=== PATIENT | male | born 1965 | race American Indian/Alaskan Native ===

== ENCOUNTER 2016-06-30 12:41 | Emergency (ER) | payer MEDICAID ==
[2016-06-30] MEDS ORDERED: TYLENOL #3 PO ONE (15:53)
[2016-06-30] MEDS ORDERED: FLEXERIL PO ONE (15:55)
--- NOTE | 2016-06-30 16:01 | Emergency Department Report ---
HPI - General Chief Complaint: Extremity Injury, Upper Time Seen by Provider: 06/30/16 15:32 - HPI HPI: 51-year-old male who presents to ED complaining of left bicep muscle pain 1 day. Patient states yesterday he tried to lift all pole table and felt a serum pain on his bicep. Patient describes pain as intermittent, throbbing/aching, localized to his left bicep region. The patient states he wrapped his bicep yesterday with Lanre wrap and got some relief. Patient states pain got worse this morning so decided to come in. Patient denies fevers chills/nausea/vomiting/chest pain/ shortness of breath/ loss of sensation/difficulty flexing and extending arm. ED Past Medical Hx - Past Medical History Hx Hypertension: Yes Hx Diabetes: Yes (II) Hx GERD: Yes Hx Arthritis: Yes Hx Asthma: Yes Additional medical history: High Cholesterol. Gout - Surgical History Hx Appendectomy: Yes Additional Surgical History: Tonsillectomy - Social History Smoking Status: Current Some Day Smoker Substance Use Type: Alcohol - Medications Home Medications: Home Medications Medication Instructions Recorded Confirmed Last Taken Type Allopurinol [Zyloprim] 100 mg PO QDAY 05/10/14 05/10/14 05/08/14 History Colchicine 0.6 mg PO DAILY 05/10/14 05/10/14 05/08/14 History Metoprolol [Lopressor TAB] 100 mg PO DAILY 05/10/14 05/10/14 05/09/14 History Pravastatin (Nf) [Pravachol] 40 mg PO QHS 05/10/14 05/10/14 05/08/14 History Ranitidine (Nf) [Zantac (Nf)] 150 mg PO QDAY 05/10/14 05/10/14 05/08/14 History HYDROcodone/ACETAMINOPHEN [[place] 1 each PO Q6HR PRN #20 tablet 05/20/14 Unknown Rx 7.5-325 mg TAB] Cyclobenzaprine [Flexeril] 10 mg PO QHS #24 tablet 06/30/16 Unknown Rx Ibuprofen [Motrin] 800 mg PO Q8HR PRN #40 tablet 06/30/16 Unknown Rx ED Review of Systems ROS: Stated complaint: LEFT ARM PULL MUSCLE/POSS TEAR Other details as noted in HPI Constitutional: denies: chills, fever Eyes: denies: eye pain, eye discharge, vision change ENT: denies: ear pain, throat pain Respiratory: denies: cough, shortness of breath, wheezing Cardiovascular: denies: chest pain, palpitations Endocrine: no symptoms reported Gastrointestinal: denies: abdominal pain, nausea, diarrhea Genitourinary: denies: urgency, dysuria Musculoskeletal: denies: back pain, joint swelling, arthralgia Skin: denies: rash, lesions Neurological: denies: headache, weakness, paresthesias, confusion, abnormal gait , vertigo Psychiatric: denies: anxiety, depression Hematological/Lymphatic: denies: easy bleeding, easy bruising Physical Exam - Physical Exam Vital Signs: Vital Signs 06/30/16 12:51 Temperature 98.1 F Pulse Rate 79 Respiratory 20 Rate Blood Pressure 150/97 O2 Sat by Pulse 96 Oximetry Physical Exam: GENERAL: Alert and oriented x3, no apparent distress, Normal Gait, atraumatic. HEAD: Head is normocephalic and a-traumatic. EYES: Extra ocular muscles are intact. Pupils are equal, round, and reactive to light and accommodation. EARS: symetrical, atraumatic, y. NOSE: Nose symetrical, Nontender,Nares appeared normal. MOUTH:Mouth is well hydrated and without lesions. NECK: Supple. Non edematous, No carotid bruits. No lymphadenopathy or thyromegaly. LUNGS: Symetrical with respiration, No wheezing, no rales or crackles, CTAB. HEART: S1, S2 present, regular rate and rhythm without murmur, no rubs, no gallops. ABDOMEN: No organomegaly was noted,Positive bowel sounds, soft, and non- distended. . Nontender to palpation on all Quadrants, NO CVA tenderness. EXTREMITIES/MUSCULOSKELETAL: No cyanosis, clubbing, rash, lesions or edema. Full ROM bilaterally. UE/LE Pulses 2+ bilaterally. LE and UE 5+ strength bilaterally. Tenderness to palpation of the biceps muscle. NEUROLOGIC: No focal Deficit, Cranial nerves II through XII are grossly intact. No loss of sensation, SKIN: Warm and dry, No lesions, No ulceration or induration present. ED Course Vital Signs 06/30/16 12:51 Temperature 98.1 F Pulse Rate 79 Respiratory 20 Rate Blood Pressure 150/97 O2 Sat by Pulse 96 Oximetry ED Medical Decision Making - Medical Decision Making 51-year-old female male presents with myalgia. Vital signs stable. Patient is in no acute distress. ED course: Patient received 1 Tylenol 3 and 5 mg of Flexeril. Patient reports saline better. Discussed patient's the patient to follow up with primary care physician as referred. Discussed heat therapy to the biceps muscle 3 times a day. Discussed drowsiness effects of home medication of Flexeril. Patient understands and states will comply to follow-up. Critical care attestation.: If time is entered above; I have spent that time in minutes in the direct care of this critically ill patient, excluding procedure time. ED Disposition Clinical Impression: Myalgia Muscle strain of left upper arm Qualifiers: Encounter type: initial encounter Qualified Code(s): S46.912A - Strain of unspecified muscle, fascia and tendon at shoulder and upper arm level, left arm , initial encounter Disposition: DISCHARGED TO HOME OR SELFCARE Is pt being admited?: No Does the pt Need Aspirin: No Condition: Stable Instructions: Muscle Strain (ED), Heat Pack Application (ED) Prescriptions: Cyclobenzaprine [Flexeril] 10 mg PO QHS #24 tablet Ibuprofen [Motrin] 800 mg PO Q8HR PRN #40 tablet PRN Reason: Pain Referrals: RUPERTO EMMANUEL MD [Primary Care Provider] - 3-5 Days [facility] [Outside] - 3-5 Days [facility] [Outside] - 3-5 Days [facility] [Outside] - 3-5 Days Forms: Work/School Release Form(ED), Accompanied Note Time of Disposition: 16:08
[2016-06-30] MEDS ORDERED: CATAPRES PO ONE (16:16)
[2016-06-30 17:03] VITALS: BP 146/93
== END 2016-06-30 17:08 | disposition home or self-care (01) ==
LOC: ED 12:41
DX: S46.912A Strain of unspecified muscle, fascia and tendon at shoulder and upper arm level, left arm, initial encounter (principal); M79.1 Myalgia; I10 Essential (primary) hypertension; E11.9 Type 2 diabetes mellitus without complications; K21.9 Gastro-esophageal reflux disease without esophagitis; M19.90 Unspecified osteoarthritis, unspecified site; J45.909 Unspecified asthma, uncomplicated; E78.00 Pure hypercholesterolemia, unspecified; M10.9 Gout, unspecified; F17.200 Nicotine dependence, unspecified, uncomplicated; X58.XXXA Exposure to other specified factors, initial encounter; Y93.9 Activity, unspecified; Y92.89 Other specified places as the place of occurrence of the external cause; Y99.9 Unspecified external cause status
CPT/HCPCS: 99283

== ENCOUNTER 2018-07-31 06:41 | Emergency (ER) | payer MEDICAID ==
[2018-07-31] MEDS ORDERED: ROBITUSSIN PO ONE (07:41)
[2018-07-31] MEDS ORDERED: SOLU-Medrol IM ONE (07:41)
--- NOTE | 2018-07-31 07:43 | Emergency Department Report ---
Minor Respiratory - HPI Chief Complaint: Upper Respiratory Infection Stated Complaint: FLU LIKE SYMPTOMS,FEVER Time Seen by Provider: 07/31/18 07:23 Duration: 3 Days Severity: moderate Minor Respiratory: Yes Able to Tolerate Fluids, Yes Cough, No Rhinorrhea, No Sore Throat, No Ear Pain, No Sick Contacts, No Hemoptysis, No Chest Pain, No Shortness of Breath, No Fever Other History: 53-year-old healthy looking female presents to the ED complaining of cough congestion and fever that started Tuesday. Patient states he had a fever Tuesday night. Patient states cough and started yesterday. Patient states that he has a history of asthma and has inhalers at home which he uses. Patient states she's been coughing up greenish mucus. He denies chest pain, shortness of breath, dizziness, headache or blurred vision. ED Review of Systems ROS: Stated complaint: FLU LIKE SYMPTOMS,FEVER Other details as noted in HPI Comment: All other systems reviewed and negative ED Past Medical Hx - Past Medical History Hx Hypertension: Yes Hx Diabetes: Yes (II) Hx GERD: Yes Hx Arthritis: Yes Hx Asthma: Yes Additional medical history: High Cholesterol. Gout - Surgical History Hx Appendectomy: Yes Additional Surgical History: Tonsillectomy - Social History Smoking Status: Never Smoker Substance Use Type: None - Medications Home Medications: Home Medications Medication Instructions Recorded Confirmed Last Taken Type Allopurinol [Zyloprim] 100 mg PO QDAY 05/10/14 05/10/14 05/08/14 History Colchicine 0.6 mg PO DAILY 05/10/14 05/10/14 05/08/14 History Metoprolol [Lopressor TAB] 100 mg PO DAILY 05/10/14 05/10/14 05/09/14 History Pravastatin [Pravachol] 40 mg PO QHS 05/10/14 05/10/14 05/08/14 History Ranitidine (Nf) [Zantac (Nf)] 150 mg PO QDAY 05/10/14 05/10/14 05/08/14 History HYDROcodone/ACETAMINOPHEN [[place] 1 each PO Q6HR PRN #20 tablet 05/20/14 Unknown Rx 7.5-325 mg TAB] Cyclobenzaprine [Flexeril] 10 mg PO QHS #24 tablet 06/30/16 Unknown Rx Azithromycin [Zithromax] 250 mg PO DAILY #1 pack 07/31/18 Unknown Rx Benzonatate [Tessalon Perles] 100 mg PO Q8HR #20 capsule 07/31/18 Unknown Rx Ibuprofen [Motrin 800 MG tab] 800 mg PO Q8HR PRN #40 tablet 07/31/18 Unknown Rx Minor Respiratory Exam - Exam General: Vital signs noted. No distress. Alert and acting appropriately. HEENT: Yes Moist Mucous Membranes, No Pharyngeal Erythema, No Pharyngeal Exudates, No Rhinorrhea, No Conjuctival Injection, No Frontal Tenderness, No Maxillary Tenderness Ear: Neither TM Bulge, Neither TM Erythema, Neither EAC Pain, Neither EAC Discharge Neck: Yes Supple, No Adenopathy Lungs: Yes Good Air Exchange, No Wheezes, No [place], No Stridor, No Cough, No Labored Respirations, No Retractions, No Use of Accessory Muscles, No Other Abnormal Lung Sounds Heart: Yes Regular, No Murmur Abdomen: Yes Normal Bowel Sounds, No Tenderness, No Peritoneal Signs Skin: No Rash, No Edema Neurologic: Alert and oriented, no deficits. Musculoskeletal: Unremarkable. ED Course Vital Signs 07/31/18 06:58 Temperature 98.9 F Pulse Rate 98 H Respiratory 20 Rate Blood Pressure 158/87 O2 Sat by Pulse 96 Oximetry ED Medical Decision Making - Radiology Data Radiology results: report reviewed, image reviewed FINAL REPORT PROCEDURE: XR CHEST ROUTINE 2V TECHNIQUE: PA and lateral chest radiographs were obtained. CPT 57250 HISTORY: fever and cough COMPARISON: No prior studies are available for comparison. FINDINGS: Heart: Normal. Mediastinum/Vessels: Normal. Lungs/Pleural space: Normal. Bony thorax: No acute osseous abnormality. Other: IMPRESSION: Normal examination. Transcribed By: CO Dictated By: KAUSHAL WALKER MD Electronically Authenticated By: KAUSHAL WALKER MD Signed Date/Time: 07/31/18 0756 - Medical Decision Making 53-year-old male presents with bronchitis Due to patient's as history of asthma was given Solu Medrol and Robitussin ED. Patient was sent him on prophylaxis Z-Mahamed and cough suppressant. Discussed follow-up with her primary care physician. Critical care attestation.: If time is entered above; I have spent that time in minutes in the direct care of this critically ill patient, excluding procedure time. ED Disposition Clinical Impression: URI (upper respiratory infection), Bronchitis Disposition: DC- TO HOME OR SELFCARE Is pt being admited?: No Does the pt Need Aspirin: No Condition: Stable Instructions: Chronic Bronchitis (ED) Additional Instructions: Make sure to follow up with the primary care physician as discussed. Take all your medications as you've been prescribed. If you have any worsening symptoms or develop new symptoms please return to ED immediately. Prescriptions: Azithromycin [Zithromax] 250 mg PO DAILY #1 pack Benzonatate [Tessalon Perles] 100 mg PO Q8HR #20 capsule Ibuprofen [Motrin 800 MG tab] 800 mg PO Q8HR PRN #40 tablet PRN Reason: Pain Referrals: PRIMARY MD WILLIAM [Primary Care Provider] - 3-5 Days TAIWO HAYWOOD MD [Referring] - 3-5 Days [facility] [Outside] - 3-5 Days Forms: Work/School Release Form(ED) Time of Disposition: 08:41
--- NOTE | 2018-07-31 07:56 | XRay Report ---
FINAL REPORT PROCEDURE: XR CHEST ROUTINE 2V TECHNIQUE: PA and lateral chest radiographs were obtained. CPT 81495 HISTORY: fever and cough COMPARISON: No prior studies are available for comparison. FINDINGS: Heart: Normal. Mediastinum/Vessels: Normal. Lungs/Pleural space: Normal. Bony thorax: No acute osseous abnormality. Other: IMPRESSION: Normal examination.
[2018-07-31 08:52] VITALS: BP 148/97
== END 2018-07-31 08:48 | disposition home or self-care (01) ==
LOC: ED 06:41
DX: J06.9 Acute upper respiratory infection, unspecified (principal); J40 Bronchitis, not specified as acute or chronic; I10 Essential (primary) hypertension; E11.9 Type 2 diabetes mellitus without complications; M19.90 Unspecified osteoarthritis, unspecified site; J45.909 Unspecified asthma, uncomplicated; E78.00 Pure hypercholesterolemia, unspecified; M10.9 Gout, unspecified; Z90.89 Acquired absence of other organs; Z90.49 Acquired absence of other specified parts of digestive tract; Z88.6 Allergy status to analgesic agent
CPT/HCPCS: 71046; 96372; 99283; J2920

== ENCOUNTER 2018-12-08 04:51 | Emergency (ER) | payer MEDICAID ==
[2018-12-08] MEDS ORDERED: MORPHINE IV ONE (05:10)
[2018-12-08] MEDS ORDERED: ZOFRAN IV ONE (05:10)
[2018-12-08 05:24] LABS: Basophils # (Auto) 0.1 K/mm3 (0.0-0.1); Basophils % (Auto) 0.5 % (0.0-1.8); Eosinophils % (Auto) 0.3 % (0.0-4.3); Hematocrit 38.2 % (35.5-45.6); Hemoglobin 12.6 gm/dl (11.8-15.2); Lymphocytes % (Auto) 18.6 % (13.4-35.0); Mean Corpuscular HGB Conc 33 % (32-34); Mean Corpuscular Volume 88 fl (84-94); Monocytes # (Auto) 1.1 K/mm3 (0.0-0.8); Monocytes % (Auto) 6.6 % (0.0-7.3); Platelet Count 179 K/mm3 (140-440); Red Blood Count 4.35 M/mm3 (3.65-5.03); Red Cell Distribution Width 14.7 % (13.2-15.2)
[2018-12-08 05:52] LABS: Alanine Aminotransferase 45 units/L (7-56); Albumin 4.3 g/dL (3.9-5); BUN/Creatinine Ratio 11; Bilirubin,Direct < 0.2 mg/dL (0-0.2); Blood Urea Nitrogen 11 mg/dL (9-20); Hemolysis Index 10
--- NOTE | 2018-12-08 06:04 | Cat Scan Report ---
CT abdomen pelvis wo con INDICATION / CLINICAL INFORMATION: Abdominal Pain. Right flank pain extending into right scrotum with history of kidney stones. TECHNIQUE: Axial CT imaging of abdomen and pelvis was performed without IV or oral contrast. Coronal and sagitta l reformatted imaging obtained and reviewed. All CT scans at this location are performed using CT dos e reduction for ALARA by means of automated exposure control. COMPARISON: None available. FINDINGS: CT abdomen without contrast demonstrates mild hepatomegaly. I suspect there is some degree of hepatic steatosis. Spleen, pancreas, and gallbladder appear grossly unremarkable. Both adrenal glands are sl ightly thickened suggesting adrenal gland hyperplasia. There is a nonobstructing 4 mm calculus in the lower pole the left kidney. There are no intrarenal calculi present within the right kidney. No hydr onephrosis. CT pelvis without contrast does not demonstrate any pelvic mass, free fluid, or focal inflammatory ch kevin. The appendix appears to have been surgically removed. No calculi are seen within the bladder. F oley catheter balloon is present within the urinary bladder. GI tract is grossly unremarkable. The prostate gland is minimally enlarged. Inflammatory changes are seen in the periprosthetic fat whi ch could indicate the presence of prostatitis. Visualized lung bases are clear. No significant osseous abnormality noted. IMPRESSION: 1. Mild inflammatory changes are seen surrounding the prostate gland suggesting the presence of prost atitis. Please correlate clinically. 2. Small nonobstructing calculus within the left kidney. No right renal calculi or hydronephrosis. 3. Mild hepatomegaly most likely secondary to hepatic steatosis. Signer Name: Eve Delaney MD Signed: 12/08/2018 5:59 AM Workstation Name: [id number]
[2018-12-08] MEDS ORDERED: LEVAQUIN PO ONE (06:23)
[2018-12-08] MEDS ORDERED: NACL 0.9% 500 ML 500 ML IV ONE (06:23)
--- NOTE | 2018-12-08 06:23 | Emergency Department Report ---
ED General Adult HPI - General Chief complaint: Abdominal Pain Stated complaint: FLANK PAIN Time Seen by Provider: 12/08/18 06:12 Source: patient, RN notes reviewed Mode of arrival: Ambulatory Limitations: No Limitations - History of Present Illness Initial comments: This is a pleasant 53-year-old gentleman. The patient is not known to this provider previously. His primary care doctor is Dr. Fabrice Lane. He does not recall the name of his urologist, but indicates that his urologist is at [facility]. His past medical history includes appendectomy reported 5 years ago, gout, hypertension, diabetes and high cholesterol. Patient presents to the emergency room today with a complaint of nontraumatic suprapubic pain, flank pain, nausea and vomiting 2, chills, inability to urinate, dyschezia, rectal pain. Symptoms present for the past 2 days. They're intermittent. They do not radiate anywhere, except as noted, and do not have exacerbating or relieving factors. Patient denies headache, neck pain, chest pain, upper abdominal pain, exertional shortness of breath, he is not nauseous at this time, he does endorse fevers and chills, he denies new or different leg pain, leg swelling, and he denies skin rashes. In the emergency room, symptoms were improved with placement of a Horton catheter, pain medication, and nausea medication. -: Gradual Location: back, pelvis Radiation: back Severity scale (0 -10): 8 Quality: other Consistency: other Improves with: other Worsens with: other - Related Data Home Medications Medication Instructions Recorded Confirmed Last Taken Allopurinol [Zyloprim] 100 mg PO QDAY 05/10/14 05/10/14 05/08/14 Colchicine 0.6 mg PO DAILY 05/10/14 05/10/14 05/08/14 Metoprolol [Lopressor TAB] 100 mg PO DAILY 05/10/14 05/10/14 05/09/14 Pravastatin [Pravachol] 40 mg PO QHS 05/10/14 05/10/14 05/08/14 Ranitidine (Nf) [Zantac (Nf)] 150 mg PO QDAY 05/10/14 05/10/14 05/08/14 Previous Rx's Medication Instructions Recorded Last Taken Type HYDROcodone/ACETAMINOPHEN [[place] 1 each PO Q6HR PRN #20 tablet 05/20/14 Unknown Rx 7.5-325 mg TAB] Cyclobenzaprine [Flexeril] 10 mg PO QHS #24 tablet 06/30/16 Unknown Rx Azithromycin [Zithromax] 250 mg PO DAILY #1 pack 07/31/18 Unknown Rx Benzonatate [Tessalon Perles] 100 mg PO Q8HR #20 capsule 07/31/18 Unknown Rx Ibuprofen [Motrin 800 MG tab] 800 mg PO Q8HR PRN #40 tablet 07/31/18 Unknown Rx Acetaminophen [Non-Aspirin Extra 500 mg PO Q6HR PRN #30 tablet 12/08/18 Unknown Rx Strength] Metoclopramide [Reglan] 10 mg PO QID PRN #30 tablet 12/08/18 Unknown Rx levoFLOXacin [Levaquin TAB] 500 mg PO QDAY #42 tablet 12/08/18 Unknown Rx Allergies Allergy/AdvReac Type Severity Reaction Status Date / Time latex Allergy Rash Verified 06/30/16 12:50 aspirin AdvReac Swelling Verified 09/13/13 11:41 ED Review of Systems ROS: Stated complaint: FLANK PAIN Other details as noted in HPI Constitutional: chills, fever Eyes: denies: eye discharge ENT: denies: epistaxis Respiratory: denies: cough Cardiovascular: denies: chest pain Gastrointestinal: nausea, vomiting Genitourinary: denies: dysuria, discharge, testicular pain Musculoskeletal: back pain Skin: denies: lesions Neurological: weakness Hematological/Lymphatic: denies: easy bleeding ED Past Medical Hx - Past Medical History Previous Medical History?: Yes Hx Hypertension: Yes Hx Diabetes: Yes (II) Hx GERD: Yes Hx Arthritis: Yes Hx Asthma: Yes Additional medical history: High Cholesterol ,BPH. Gout - Surgical History Past Surgical History?: Yes Hx Appendectomy: Yes Additional Surgical History: Tonsillectomy - Social History Smoking Status: Current Every Day Smoker Substance Use Type: Alcohol - Medications Home Medications: Home Medications Medication Instructions Recorded Confirmed Last Taken Type Allopurinol [Zyloprim] 100 mg PO QDAY 05/10/14 05/10/14 05/08/14 History Colchicine 0.6 mg PO DAILY 05/10/14 05/10/14 05/08/14 History Metoprolol [Lopressor TAB] 100 mg PO DAILY 05/10/14 05/10/14 05/09/14 History Pravastatin [Pravachol] 40 mg PO QHS 05/10/14 05/10/14 05/08/14 History Ranitidine (Nf) [Zantac (Nf)] 150 mg PO QDAY 05/10/14 05/10/14 05/08/14 History HYDROcodone/ACETAMINOPHEN [[place] 1 each PO Q6HR PRN #20 tablet 05/20/14 Unknown Rx 7.5-325 mg TAB] Cyclobenzaprine [Flexeril] 10 mg PO QHS #24 tablet 06/30/16 Unknown Rx Azithromycin [Zithromax] 250 mg PO DAILY #1 pack 07/31/18 Unknown Rx Benzonatate [Tessalon Perles] 100 mg PO Q8HR #20 capsule 07/31/18 Unknown Rx Ibuprofen [Motrin 800 MG tab] 800 mg PO Q8HR PRN #40 tablet 07/31/18 Unknown Rx Acetaminophen [Non-Aspirin Extra 500 mg PO Q6HR PRN #30 tablet 12/08/18 Unknown Rx Strength] Metoclopramide [Reglan] 10 mg PO QID PRN #30 tablet 12/08/18 Unknown Rx levoFLOXacin [Levaquin TAB] 500 mg PO QDAY #42 tablet 12/08/18 Unknown Rx ED Physical Exam - General Limitations: No Limitations General appearance: alert, in no apparent distress, obese - Head Head exam: Present: atraumatic, normocephalic - Eye Eye exam: Present: normal appearance, EOMI - ENT ENT exam: Present: normal exam, normal orophraynx, mucous membranes moist, normal external ear exam - Neck Neck exam: Present: normal inspection, full ROM. Absent: tenderness, meningismus - Respiratory Respiratory exam: Present: normal lung sounds bilaterally. Absent: respiratory distress - Cardiovascular Cardiovascular Exam: Present: regular rate, normal rhythm, tachycardia, normal heart sounds. Absent: bradycardia, irregular rhythm, systolic murmur, diastolic murmur, rubs, gallop - GI/Abdominal GI/Abdominal exam: Present: soft. Absent: distended, tenderness, guarding, rebound, pulsatile mass - Rectal Rectal exam: Present: deferred - exam: Present: normal inspection, other (chaperoned by nurse Jovanny Ga). Absent: testicular tenderness External exam: Present: normal external exam, other (there is a Horton catheter in place draining clear yellow urine) - Extremities Exam Extremities exam: Present: normal inspection, full ROM, other (2+ pulses noted in the bilateral upper, lower extremities. Compartments soft. No long bony ten derness. The pelvis is stable.). Absent: pedal edema, joint swelling, calf tenderness - Back Exam Back exam: Present: normal inspection, full ROM. Absent: tenderness, CVA tenderness (R), CVA tenderness (L), paraspinal tenderness, vertebral tenderness - Neurological Exam Neurological exam: Present: alert, oriented X3, normal gait, other (Extraocular movements intact. Tongue midline. No facial droop. Facial sensation intact to light touch in the V1, V2, V3 distribution bilaterally. 5 and 5 strength in 4 extremities.. Sensation is intact to light touch in 4 extremities.). Absent: motor sensory deficit - Psychiatric Psychiatric exam: Present: normal affect, normal mood - Skin Skin exam: Present: warm, dry, intact, normal color. Absent: rash ED Course Vital Signs 12/08/18 12/08/18 12/08/18 04:55 05:10 05:16 Temperature 98.4 F 100.5 F H Pulse Rate 106 H 119 H 99 H Respiratory 22 14 25 H Rate Blood Pressure 142/82 166/99 Blood Pressure 166/99 [Right] O2 Sat by Pulse 96 99 99 Oximetry 12/08/18 12/08/18 12/08/18 05:24 05:58 06:00 Temperature Pulse Rate 101 H 98 H Respiratory 20 17 Rate Blood Pressure 154/93 151/90 Blood Pressure [Right] O2 Sat by Pulse 98 97 Oximetry 12/08/18 12/08/18 12/08/18 07:15 08:00 09:54 Temperature Pulse Rate 68 74 84 Respiratory 17 17 17 Rate Blood Pressure Blood Pressure 113/59 132/68 129/58 [Right] O2 Sat by Pulse 100 100 100 Oximetry ED Medical Decision Making - Lab Data Result diagrams: 12/08/18 05:15 12/08/18 05:15 Vital Signs 12/08/18 12/08/18 12/08/18 04:55 05:10 05:16 Temperature 98.4 F 100.5 F H Pulse Rate 106 H 119 H 99 H Respiratory 22 14 25 H Rate Blood Pressure 142/82 166/99 Blood Pressure 166/99 [Right] O2 Sat by Pulse 96 99 99 Oximetry 0712/08/18 12/08/18 05:24 05:58 06:00 Temperature Pulse Rate 101 H 98 H Respiratory 20 17 Rate Blood Pressure 154/93 151/90 Blood Pressure [Right] O2 Sat by Pulse 98 97 Oximetry Lab Results 12/08/18 12/08/18 Range/Units 05:15 05:15 WBC 15.9 H (4.5-11.0) K/mm3 RBC 4.35 (3.65-5.03) M/mm3 Hgb 12.6 (11.8-15.2) gm/dl Hct 38.2 (35.5-45.6) % MCV 88 (84-94) fl MCH 29 (28-32) pg MCHC 33 (32-34) % RDW 14.7 (13.2-15.2) % Plt Count 179 (140-440) K/mm3 Lymph % (Auto) 18.6 (13.4-35.0) % [place] % (Auto) 6.6 (0.0-7.3) % Eos % (Auto) 0.3 (0.0-4.3) % Baso % (Auto) 0.5 (0.0-1.8) % Lymph # 3.0 (1.2-5.4) K/mm3 [place] # 1.1 H (0.0-0.8) K/mm3 Eos # 0.0 (0.0-0.4) K/mm3 Baso # 0.1 (0.0-0.1) K/mm3 Seg Neutrophils % 74.0 H (40.0-70.0) % Seg Neutrophils # 11.8 H (1.8-7.7) K/mm3 Sodium 134 L (137-145) mmol/L Potassium 4.0 (3.6-5.0) mmol/L Chloride 99.8 (98-107) mmol/L Carbon Dioxide 22 (22-30) mmol/L Anion Gap 16 mmol/L BUN 11 (9-20) mg/dL Creatinine 1.0 (0.8-1.5) mg/dL Estimated GFR > 60 ml/min BUN/Creatinine Ratio 11 % Glucose 203 H (75-100) mg/dL Calcium 10.0 (8.4-10.2) mg/dL Total Bilirubin 0.60 (0.1-1.2) mg/dL Direct Bilirubin < 0.2 (0-0.2) mg/dL Indirect Bilirubin 0.4 mg/dL AST 19 (5-40) units/L ALT 45 (7-56) units/L Alkaline Phosphatase 99 (35-129) units/L Albumin 4.3 (3.9-5) g/dL - Radiology Data Radiology results: report reviewed, image reviewed Print Report Referring Physician: OLIVER EVANS Patient Name: DARIEN NUNES Date of : 1965 Sex: Male Report Date: 2018-12-08 Report Status: Finalized Findings [facility] [address] [place] [address] Cat Scan Report Signed Patient: DARIEN NUNES MR#: [id number] : 1965 Acct:[id number] Age/Sex: 53 / M ADM Date: 12/08/18 Loc: ED Attending Dr: Ordering Physician: Oliver Lanier MD Date of Service: 12/08/18 Procedure(s): CT abdomen pelvis wo con Accession Number(s): [id number] cc: Oliver Lanier MD CT abdomen pelvis wo con INDICATION / CLINICAL INFORMATION: Abdominal Pain. Right flank pain extending into right scrotum with history of kidney stones. TECHNIQUE: Axial CT imaging of abdomen and pelvis was performed without IV or oral contrast. Coronal and sagittal reformatted imaging obtained and reviewed. All CT scans at this location are performed using CT dose reduction for ALARA by means of automated exposure control. COMPARISON: None available. FINDINGS: CT abdomen without contrast demonstrates mild hepatomegaly. I suspect there is some degree of hepatic steatosis. Spleen, pancreas, and gallbladder appear grossly unremarkable. Both adrenal glands are slightly thickened suggesting adrenal gland hyperplasia. There is a nonobstructing 4 mm calculus in the lower pole the left kidney. There are no intrarenal calculi present within the right kidney. No hydronephrosis. CT pelvis without contrast does not demonstrate any pelvic mass, free fluid, or focal inflammatory change. The appendix appears to have been surgically removed. No calculi are seen within the bladder. Horton catheter balloon is present within the urinary bladder. GI tract is grossly unremarkable. The prostate gland is minimally enlarged. Inflammatory changes are seen in the periprosthetic fat which could indicate the presence of prostatitis. Visualized lung bases are clear. No significant osseous abnormality noted. IMPRESSION: 1. Mild inflammatory changes are seen surrounding the prostate gland suggesting the presence of prostatitis. Please correlate clinically. 2. Small nonobstructing calculus within the left kidney. No right renal calculi or hydronephrosis. 3. Mild hepatomegaly most likely secondary to hepatic steatosis. Signer Name: Eve Delaney MD Signed: 12/08/2018 5:59 AM Workstation Name: [id number] - Medical Decision Making Differential diagnosis, including but not limited to: Urinary tract infection, BPH, prostatitis Assessment and plan: 53-year-old gentleman with probable acute bacterial prostatitis. His tachycardia is resolved, he is able to tolerate liquid feeds, and he is hemodynamically stable. His leukocytosis is reviewed and appreciated, however, given that he is tolerating liquid feeds, given that his vital signs have improved, it is my opinion that the patient is suitable for a trial of oral outpatient antibiotic management. Horton catheter in place draining clear yellow urine, I elected to not perform prostate exam, as I have a high suspicion for prostatitis, and did not wish to induce bacteremia by performing a digital exam.. Patient indicates he is reliable to to follow-up as an outpatient. Patient will be started on pain medication, narcotic medication, Levaquin for for 6 weeks, return precautions are reviewed. Critical care attestation.: If time is entered above; I have spent that time in minutes in the direct care of this critically ill patient, excluding procedure time. ED Disposition Clinical Impression: Acute prostatitis, Urinary retention Disposition: -01 TO HOME OR SELFCARE Is pt being admited?: No Does the pt Need Aspirin: No Condition: Stable Additional Instructions: Advance diet as tolerated. Push gentle fluids, preferably water. Avoid consumption of heavy, spicy foods, and sugary drinks. Cultures were sent today, and results of be available in the next 3-5 days. Please have your primary care doctor or urology specialist contact the medical records department to obtain culture results. Horton catheter should remain in place, the patient should follow-up with the urology specialist in 5-7 days for repeat checkup/evaluation. If patient not able to obtain outpatient follow-up, the patient should return to this emergency room right away for repeat evaluation. Patient should seek immediate medical attention if he develops projectile vomiting, change in mental status, confusion, inability to tolerate liquid feeds, or new, worsening or different symptoms. Do not consume alcohol while taking the prescribed medications. Continue outpatient medications otherwise. Prescriptions: levoFLOXacin [Levaquin TAB] 500 mg PO QDAY #42 tablet Acetaminophen [Non-Aspirin Extra Strength] 500 mg PO Q6HR PRN #30 tablet PRN Reason: Pain , Severe (7-10) Metoclopramide [Reglan] 10 mg PO QID PRN #30 tablet PRN Reason: Nausea Referrals: RENATA SPENCE MD [Staff Physician] - 7-10 days
[2018-12-08 06:37] LABS: Bilirubin,Urine NEG (Negative); Blood,Urine SM (Negative); Color,Urine Yellow (Yellow); Mucus,Urine FEW /HPF; Urobilinogen,Urine < 2.0 mg/dL (<2.0)
[2018-12-08] MEDS ORDERED: TYLENOL PO ONE (07:06)
[2018-12-08] MEDS ORDERED: SUBLIMAZE IV ONE (07:48)
[2018-12-08 09:54] VITALS: BP 129/58
== END 2018-12-08 09:53 | disposition home or self-care (01) ==
LOC: ED 04:51
DX: N41.0 Acute prostatitis (principal); R33.9 Retention of urine, unspecified; I10 Essential (primary) hypertension; E11.9 Type 2 diabetes mellitus without complications; K21.9 Gastro-esophageal reflux disease without esophagitis; M19.90 Unspecified osteoarthritis, unspecified site; J45.909 Unspecified asthma, uncomplicated; E78.00 Pure hypercholesterolemia, unspecified; F17.200 Nicotine dependence, unspecified, uncomplicated; M10.9 Gout, unspecified; Z79.899 Other long term (current) drug therapy; Z90.89 Acquired absence of other organs; Z90.49 Acquired absence of other specified parts of digestive tract; Z88.6 Allergy status to analgesic agent; Z91.040 Latex allergy status
CPT/HCPCS: 36415; 51702; 74176; 80048; 80076; 81001; 85025; 96374; 96375; 99284; J2270; J2405; J3010; J7040

== ENCOUNTER 2018-12-14 17:55 | Emergency (ER) | payer MEDICAID ==
--- NOTE | 2018-12-14 18:15 | Event Note ---
ED Screening Note ED Screening Note: he has a "swollen prostate" on December 08 had a campbell catheter placed on December [address] 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 Further treatment and workup at subsequent clinical providers discretion. Patient/guardian urged not to elope from the ED as their condition may be serious if not clinically assessed and managed. Initial orders include: UA, labs
[2018-12-14 18:31] LABS: Basophils # (Auto) 0.1 K/mm3 (0.0-0.1); Basophils % (Auto) 0.8 % (0.0-1.8); Eosinophils # (Auto) 0.1 K/mm3 (0.0-0.4); Eosinophils % (Auto) 1.8 % (0.0-4.3); Hematocrit 36.8 % (35.5-45.6); Hemoglobin 11.9 gm/dl (11.8-15.2); Lymphocytes # (Auto) 3.4 K/mm3 (1.2-5.4); Lymphocytes % (Auto) 44.4 % (13.4-35.0); Mean Corpuscular HGB Conc 32 % (32-34); Mean Corpuscular Volume 89 fl (84-94); Monocytes # (Auto) 0.6 K/mm3 (0.0-0.8); Monocytes % (Auto) 8.2 % (0.0-7.3); Platelet Count 290 K/mm3 (140-440); Red Blood Count 4.15 M/mm3 (3.65-5.03); Red Cell Distribution Width 14.3 % (13.2-15.2)
[2018-12-14 18:40] LABS: INR 0.93 (0.87-1.13); Partial Thromboplastin Time 31.5 Sec. (24.2-36.6)
[2018-12-14 18:52] LABS: BUN/Creatinine Ratio 16; Blood Urea Nitrogen 16 mg/dL (9-20); Calcium 9.5 mg/dL (8.4-10.2); Hemolysis Index 10
--- NOTE | 2018-12-14 21:01 | Emergency Department Report ---
ED Male HPI - General Chief complaint: Urogenital-Male Stated complaint: JENNIFER IS FILLING UP WITH BLOOD Time Seen by Provider: 12/14/18 18:13 Source: patient Mode of arrival: Ambulatory Limitations: No Limitations - History of Present Illness Initial comments: 53-year-old male presents to ED with complaint of hematuria. Patient has history of prostatic enlargement, was seen in this ED approximately one week ago with urinary retention and Horton catheter was placed at that time. Patient states he had blood in his urine the next day, which resolved. The patient followed up with his urologist 3 days ago, and has follow-up appointment for next week to remove the Horton. Patient states today he noticed blood in his urine again. Patient denies fever, vomiting, abdominal pain. MD Complaint: other (hematuria) -: days(s) (1) Severity: moderate Consistency: intermittent Improves with: none Worsens with: none blood in urine. denies: fever, nausea/vomiting - Related Data Home Medications Medication Instructions Recorded Confirmed Last Taken Allopurinol [Zyloprim] 100 mg PO QDAY 05/10/14 05/10/14 05/08/14 Colchicine 0.6 mg PO DAILY 05/10/14 05/10/14 05/08/14 Metoprolol [Lopressor TAB] 100 mg PO DAILY 05/10/14 05/10/14 05/09/14 Pravastatin [Pravachol] 40 mg PO QHS 05/10/14 05/10/14 05/08/14 Ranitidine (Nf) [Zantac (Nf)] 150 mg PO QDAY 05/10/14 05/10/14 05/08/14 Previous Rx's Medication Instructions Recorded Last Taken Type HYDROcodone/ACETAMINOPHEN [[place] 1 each PO Q6HR PRN #20 tablet 05/20/14 Unknown Rx 7.5-325 mg TAB] Cyclobenzaprine [Flexeril] 10 mg PO QHS #24 tablet 06/30/16 Unknown Rx Azithromycin [Zithromax] 250 mg PO DAILY #1 pack 07/31/18 Unknown Rx Benzonatate [Tessalon Perles] 100 mg PO Q8HR #20 capsule 07/31/18 Unknown Rx Ibuprofen [Motrin 800 MG tab] 800 mg PO Q8HR PRN #40 tablet 07/31/18 Unknown Rx Acetaminophen [Non-Aspirin Extra 500 mg PO Q6HR PRN #30 tablet 12/08/18 Unknown Rx Strength] Metoclopramide [Reglan] 10 mg PO QID PRN #30 tablet 12/08/18 Unknown Rx levoFLOXacin [Levaquin TAB] 500 mg PO QDAY #42 tablet 12/08/18 Unknown Rx Allergies Allergy/AdvReac Type Severity Reaction Status Date / Time latex Allergy Rash Verified 12/14/18 17:57 aspirin AdvReac Swelling Verified 12/14/18 17:57 ED Review of Systems ROS: Stated complaint: CATEHER IS FILLING UP WITH BLOOD Other details as noted in HPI Comment: All other systems reviewed and negative Constitutional: denies: chills, fever Gastrointestinal: denies: abdominal pain, nausea, vomiting Genitourinary: hematuria Musculoskeletal: denies: back pain ED Past Medical Hx - Past Medical History Previous Medical History?: Yes Hx Hypertension: Yes Hx Diabetes: Yes (II) Hx GERD: Yes Hx Arthritis: Yes Hx Asthma: Yes Additional medical history: High Cholesterol ,BPH. Gout - Surgical History Past Surgical History?: Yes Hx Appendectomy: Yes Additional Surgical History: Tonsillectomy - Social History Smoking Status: Current Every Day Smoker Substance Use Type: None - Medications Home Medications: Home Medications Medication Instructions Recorded Confirmed Last Taken Type Allopurinol [Zyloprim] 100 mg PO QDAY 05/10/14 05/10/14 05/08/14 History Colchicine 0.6 mg PO DAILY 05/10/14 05/10/14 05/08/14 History Metoprolol [Lopressor TAB] 100 mg PO DAILY 05/10/14 05/10/14 05/09/14 History Pravastatin [Pravachol] 40 mg PO QHS 05/10/14 05/10/14 05/08/14 History Ranitidine (Nf) [Zantac (Nf)] 150 mg PO QDAY 05/10/14 05/10/14 05/08/14 History HYDROcodone/ACETAMINOPHEN [[place] 1 each PO Q6HR PRN #20 tablet 05/20/14 Unknown Rx 7.5-325 mg TAB] Cyclobenzaprine [Flexeril] 10 mg PO QHS #24 tablet 06/30/16 Unknown Rx Azithromycin [Zithromax] 250 mg PO DAILY #1 pack 07/31/18 Unknown Rx Benzonatate [Tessalon Perles] 100 mg PO Q8HR #20 capsule 07/31/18 Unknown Rx Ibuprofen [Motrin 800 MG tab] 800 mg PO Q8HR PRN #40 tablet 07/31/18 Unknown Rx Acetaminophen [Non-Aspirin Extra 500 mg PO Q6HR PRN #30 tablet 12/08/18 Unknown Rx Strength] Metoclopramide [Reglan] 10 mg PO QID PRN #30 tablet 12/08/18 Unknown Rx levoFLOXacin [Levaquin TAB] 500 mg PO QDAY #42 tablet 12/08/18 Unknown Rx ED Physical Exam - General Limitations: No Limitations General appearance: alert, in no apparent distress - Head Head exam: Present: atraumatic, normocephalic - Eye Eye exam: Present: normal appearance - ENT ENT exam: Present: mucous membranes moist - Neck Neck exam: Present: normal inspection - Respiratory Respiratory exam: Present: normal lung sounds bilaterally. Absent: respiratory distress - Cardiovascular Cardiovascular Exam: Present: regular rate, normal rhythm - GI/Abdominal GI/Abdominal exam: Present: soft. Absent: distended, tenderness - exam: Present: other (Horton catheter in place, bloody urine in bag) - Extremities Exam Extremities exam: Present: normal inspection - Back Exam Back exam: Absent: CVA tenderness (R), CVA tenderness (L) - Neurological Exam Neurological exam: Present: alert, oriented X3 - Psychiatric Psychiatric exam: Present: normal affect, normal mood - Skin Skin exam: Present: warm, dry, intact, normal color. Absent: rash ED Course Vital Signs 12/14/18 12/14/18 12/15/18 18:14 20:28 00:01 Temperature 98.2 F 98.1 F 98 F Pulse Rate 73 61 74 Respiratory 20 13 16 Rate Blood Pressure 149/91 125/80 131/84 [Right] O2 Sat by Pulse 98 98 97 Oximetry ED Medical Decision Making - Lab Data Result diagrams: 12/14/18 18:17 12/14/18 18:17 - Medical Decision Making - UA does not show evidence of UTI, hematuria only - no antibiotics will be given at this tie - labs unremarkable - advised f/u next week as scheduled - Differential Diagnosis hematuria, prostatitis, UTI Critical care attestation.: If time is entered above; I have spent that time in minutes in the direct care of this critically ill patient, excluding procedure time. ED Disposition Clinical Impression: Hematuria Disposition: DC-01 TO HOME OR SELFCARE Is pt being admited?: No Condition: Stable Instructions: Acute Hematuria (ED) Referrals: PRIMARY CARE, [Referring] - 3-5 Days Time of Disposition: 23:44
[2018-12-14 23:20] LABS: Bilirubin,Urine Negative (Negative); Blood,Urine Large (Negative); Color,Urine Amber (Yellow)
[2018-12-14 23:21] LABS: Amorphous Crystals,Urine Few; Protein,Urine >500 mg/dL (Negative); RBC,Urine > 182.0 /HPF (0.0-6.0); Urobilinogen,Urine < 2.0 mg/dL (<2.0)
[2018-12-14 23:22] LABS: Mucus,Urine Few /HPF
[2018-12-15 00:38] VITALS: BP 131/84
== END 2018-12-15 00:01 | disposition home or self-care (01) ==
LOC: ED 17:55
DX: R31.9 Hematuria, unspecified (principal); I10 Essential (primary) hypertension; E11.9 Type 2 diabetes mellitus without complications; K21.9 Gastro-esophageal reflux disease without esophagitis; J45.909 Unspecified asthma, uncomplicated; E78.00 Pure hypercholesterolemia, unspecified; N40.0 Benign prostatic hyperplasia without lower urinary tract symptoms; M10.9 Gout, unspecified; F17.200 Nicotine dependence, unspecified, uncomplicated; Z90.49 Acquired absence of other specified parts of digestive tract
CPT/HCPCS: 36415; 80048; 81001; 85025; 85610; 85730

== ENCOUNTER 2021-12-15 10:22 | Outpatient (CLI) | payer MEDICAID ==
--- NOTE | 2021-12-15 11:10 | XRay Report ---
CERVICAL SPINE 5 VIEWS INDICATION: M25.512 PAIN IN LEFT SHOULDER. COMPARISON: None. IMPRESSION: There is normal alignment on the lateral view. There is mild dextrocurvature of the cerv ical spine on the frontal view. 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 The remaining levels are within normal limits. The facet joints are unremarkable. The neural foramen appear adequa tely patent on the oblique images. No acute osseous or soft tissue abnormality. Signer Name: Kenrick Gifford Jr, MD Signed: 12/15/2021 11:05 AM Workstation Name: [id number]
== END 2021-12-15 10:23 | disposition home or self-care (01) ==
LOC: XRAY 10:22
PROVIDERS: ATTEND Orthopaedic Surgery
DX: M47.812 Spondylosis without myelopathy or radiculopathy, cervical region (principal)
CPT/HCPCS: 72050